=== PATIENT | female | born 2005 | race Caucasian/White ===

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

== ENCOUNTER 2023-11-18 15:16 | Emergency (ER) | payer SELFPAY ==
[2023-11-18 15:29] VITALS: BP 105/71; PULSE 82; RESP 17; TEMP 36.8; O2SAT 99; BMI 23.1
--- NOTE | 2023-11-18 16:05 | CTR_ITS ---
PROCEDURE INFORMATION: Exam: CT Neck With Contrast Exam date and time: 11/18/2023 4:26 PM Age: 17 years old Clinical indication: Mass, lump, or swelling in neck; Left; Neck pain; Additional info: Painful neck mass TECHNIQUE: Imaging protocol: Computed tomography of the neck with contrast. Radiation optimization: All CT scans at this facility use at least one of these dose optimization techniques: automated exposure control; mA and/or kV adjustment per patient size (includes targeted exams where dose is matched to clinical indication); or iterative reconstruction. Contrast material: OMNI 350; Contrast volume: 80 ml; Contrast route: INTRAVENOUS (IV); COMPARISON: CR XR chest 2V* [id number] 09/27/2022 11:38 AM RADIATION DOSE METRICS: Total DLP (mGy-cm): 209.1 FINDINGS: Salivary glands: See Lymph nodes finding. Pharynx: Unremarkable. No significant tonsillar enlargement. Prevertebral and retropharyngeal spaces: Unremarkable. Larynx: Unremarkable. Epiglottis is normal. Thyroid: Normal. No enlarged or calcified nodules. Trachea: Visualized trachea is unremarkable. Lungs: Unremarkable as visualized. Lymph nodes: Peripherally enhancing collection with complex fluid or necrosis centrally cannot be differentiated from adjacent level 2 and 3 lymph nodes in the left neck soft tissues. This cannot be differentiated from the adjacent anteromedial sternocleidomastoid and inferior aspect of the parotid gland as well and measures 3.6 x 2.3 cm in the craniocaudad/transverse dimensions. There is level 2 through 4 lymphadenopathy in the left neck soft tissues. Bones/joints: Unremarkable. No acute fracture. Soft tissues: See Lymph nodes finding. CT/CT neck w con* [id number] IMPRESSION: 1. Peripherally enhancing collection with complex fluid or necrosis centrally cannot be differentiated from adjacent level 2 and 3 lymph nodes in the left neck soft tissues. This collection also cannot be differentiated from the adjacent anteromedial sternocleidomastoid and inferior aspect of the parotid gland. Differential includes abscess formation and or necrotic lymph nodes. 2. Level 2 through 4 lymphadenopathy in the left neck soft tissues.
--- NOTE | 2023-11-18 16:11 | ED_ITS ---
Documented by User: AWA Oh 11/18/23 19:11 HPI - General Adult 2 General: Chief complaint: General Medical Stated complaint: left side kneck pain Time Seen by Provider: 11/18/23 15:22 Source: patient Mode of arrival: ambulatory Limitations: no limitations History of Present Illness: Patient is a 17-year-old female presenting to the emergency department complaining of painful neck mass to left neck for the past 10 days. Patient states she has a history of swollen lymph nodes, though this feels different and not usually they are painful. She has been taking ibuprofen for pain relief and using ice, but states this is not been helping. She also notes that it is painful whenever she swallows. She denies any fever, recent cat bite/scratch, nausea or vomiting, or any pertinent past medical history. She states that this morning it was so bad to where she could not move her neck. MD complaint: Painful left neck mass Onset (ago): day(s) (10) Location: neck Severity: severe Relieving factors: none Exacerbating factors: other (Swallowing/movement of neck) Associated symptoms: Deny chest pain, dyspnea, headache(s), nausea, rash, palpitations or vomiting Treatments prior to arrival: NSAID and cold therapy Review of Systems 2 General: Reports: 10 or more systems reviewed and unremarkable except in HPI and below Const: Denies: fever(s), chills or fatigue Eyes: Denies: change in vision ENMT: Denies: throat pain, ear or mastoid pain or nasal discharge Card: Denies: chest pain, palpitations, swelling of feet/ankles or lightheadedness Resp: Denies: dyspnea, productive cough or wheezing GI: Denies: abdominal pain, nausea, vomiting, diarrhea or constipation : Denies: flank pain, difficulty voiding, dysuria or urinary frequency Musc: Reports: neck pain (Neck mass); Denies: back pain or joint pain Skin/Breast: Denies: rash Neuro: Denies: headache(s), numbness in extremities or weakness in extremities PFSH ED 2 PFSH: Medical History Psychiatric care Family History Grandmother Hypertension maternal Denies family history of Colon cancer Ovarian cancer Diabetes Heart disease Hyperlipidemia Breast cancer Uterine cancer Thyroid disease Stroke Social History Smoking and tobacco/nicotine status: current every day tobacco/nicotine user cigarettes Packs smoked per day: 0.12 Years cigarettes smoked: 3 and e- cigarettes E-Cigarette Details: vaporizer device and with nicotine E-cig/vape details: Smoked these the last 2 yrs. 1/2 cartridge/ day. Quit status (tobacco/nicotine): has tried quititng Number of times tried to quit tobacco: 3 Second hand smoke exposure: No Alcohol intake: current Alcohol intake frequency: holidays/special occasions only Alcohol type: beer Substance/Drug Use: never Physical Exam 2 Const: COMMON NORMALS: no acute distress and healthy appearing GENERAL APPEARANCE: cooperative, comfortable and well developed HENMT: COMMON NORMALS: normocephalic, atraumatic, hearing grossly normal bilaterally, external ears normal, EAC's normal, TM's normal bilaterally, Normal external nose present and Normal nasal mucous membranes and turbinates present HEAD & SCALP: normal to inspection, normocephalic and atraumatic FACE & SINUS: normal facial exam and sinuses nontender NOSE: Normal external nose present, Normal nares present, No nasal polyps present and Normal nasal mucous membranes and turbinates present EXTERNAL EAR: Yes external ears normal E XTERNAL AUDITORY CANAL: EAC's normal TYMPANIC MEMBRANE: TM's normal bilaterally MOUTH: Normal oral and palatal mucosa present THROAT: p osterior oropharynx normal and tonsils normal Eye: COMMON NORMALS: EOMs intact bilaterally, conjunctivae normal and normal visual carrion by confrontation GENERAL EYE: appearance normal, both eyes and all related structures CONJUNCTIVA: Yes conjunctivae normal Neck/C-Spine: OTHER: There is a large/nonmobile and tender neck mass just anterior to the sternocleidomastoid on the left side. There is limitation of rotation at the neck due to pain. No overlying skin changes. Chest: COMMONS NORMALS: normal inspection of the chest Resp: COMMON NORMALS: normal respiratory effort and clear to auscultation bilaterally EFFORT & INSPECTION: Yes able to speak in complete sentences A USCULTATION: clear to auscultation bilaterally Cardio: COMMON NORMALS: regular rate, regular rhythm, S1 normal heart sound present and S2 normal heart sound present RATE: regular rate RHYTHM: r egular rhythm HEART SOUNDS: S1 normal heart sound present, S2 normal heart sound present, no gallops, no murmurs and no rubs GI: COMMON NORMALS: Soft to palpation and No hepatosplenomegaly present I NSPECTION: Yes normal to inspection PALPATION: Yes Soft to palpation and Yes No hepatosplenomegaly present Extremity: COMMON NORMALS: normal to inspection, full ROM and capillary refill normal Skin: COMMON NORMALS: no rashes or lesions noted NARRATIVE SKIN EXAM: Specifically no evidence of recent cat scratch GENERAL SKIN EXAM: no rashes or lesions noted Course 2 Vital Signs: Vital signs: Vital Signs Temperature 98.2 F 11/18/23 19:28 Pulse Rate 71 11/18/23 19:28 Respiratory Rate 16 11/18/23 19:28 Blood Pressure 96/74 11/18/23 19:28 Pulse Oximetry 99 11/18/23 19:28 Oxygen Delivery Me thod Room Air 11/18/23 15:29 MDM - General Adult Medical Decision Making Patient presented with tender neck mass to left neck that she noticed 10 days ago. History of lymphadenopathy, states this has persisted longer and is more painful. After further history taking [place], and does own a household cat. Patient was afebrile and rest of her vitals unremarkable. Basic blood work unremarkable aside from a moderately elevated CRP. CT of the neck could not differentiate between abscess or necrotic lymph nodes, though due to her history of lymphadenopathy that is more favorable of the latter. She will be referred to ENT and we will cover for multiple organisms with Zithromax and doxycycline. Patient does not endorse any respiratory compromise or tongue or throat swelling, however she is instructed to return immediately if she has any symptoms consistent with this. She is comfortable with discharge home at this time. First doses of antibiotics are given here in the emergency department. She is instructed to continue Tylenol and ibuprofen for any pain. Care of this patient is discussed with supervising ED physician, Dr. Salazar, who agrees with disposition. Lab Data I reviewed the patient's lab results. 11/18/23 16:15 11/18/23 16:[address] 11/18/23 16:05 IMPRESSION: 1. Peripherally enhancing collection with complex fluid or necrosis centrally cannot be differentiated from adjacent level 2 and 3 lymph nodes in the left neck soft tissues. This collection also cannot be differentiated from the adjacent anteromedial sternocleidomastoid and inferior aspect of the parotid gland. Differential includes abscess formation and or necrotic lymph nodes. 2. Level 2 through 4 lymphadenopathy in the left neck soft tissues. Laboratory Results WBC 10.75 10^3/uL (4.5-13.0) 11/18/23 16:15 RBC 3.90 10^6/uL (3.85-5.65) 11/18/23 16:15 Hgb 12.30 g/dL (12.4-14.8) L 11/18/23 16:15 Hct 36.0 % (36-47) 11/18/23 16:15 MCV 92.3 fl (85-98) 11/18/23 16:15 MCH 31.5 pg (27-33) 11/18/23 16:15 MCHC 34.2 g/dL (30-55) 11/18/23 16:15 RDW 12.4 % (12.1-15.1) 11/18/23 16:15 Plt Count 261 10^3/cmm (157-399) 11/18/23 16:15 MPV 10.2 fL (7.4-10.4) 11/18/23 16:15 Neut % (Auto) 72.9 % 11/18/23 16:15 Lymph % (Auto) 18.3 % 11/18/23 16:15 [place] % (Auto) 6.3 % 11/18/23 16:15 Eos % (Auto) 1.9 % 11/18/23 16:15 Baso % (Auto) 0.4 % 11/18/23 16:15 Neut # (Auto) 7.84 10^3/uL (1.8-8.0) 11/18/23 16:15 Lymph # (Auto) 2.0 10^3/uL (1.5-6.5) 11/18/23 16:15 [place] # (Auto) 0.7 10^3/uL (0.2-0.9) 11/18/23 16:15 Eos # (Auto) 0.2 10^3/uL (0.0-0.8) 11/18/23 16:15 Baso # (Auto) 0.0 10^3/uL (0.0-0.1) 11/18/23 16:15 Nucleated RBC % (auto) 0 % 11/18/23 16:15 Nucleated RBCs # 0.0 /100WBC 11/18/23 16:15 ESR 15 mm/hr (0-15) 11/18/23 16:15 Sodium 142 mmol/L (136-145) 11/18/23 16:15 Potassium 4.0 mmol/L (3.5-5.1) 11/18/23 16:15 Chloride 109 mmol/L (98-107) H 11/18/23 16:15 Carbon Dioxide 23 mmol/L (22-29) 11/18/23 16:15 Anion Gap 14.0 (5-19) 11/18/23 16:15 BUN 10 mg/dL (6-20) 11/18/23 16:15 Creatinine 0.8 mg/dL (0.5-0.9) 11/18/23 16:15 GFR Calculation 92.4 mL/min (90-130) 11/18/23 16:15 Glucose 102 mg/dL (65-115) 11/18/23 16:15 Calculated Osmolality 293 mOsm/kg (285-295) 11/18/23 16:15 Calcium 8.7 mg/dL (8.5-10.5) 11/18/23 16:15 Total Bilirubin 0.5 mg/dL (0.15-1.2) 11/18/23 16:15 AST 22 U/L (0-32) 11/18/23 16:15 ALT 18 U/L (0-33) 11/18/23 16:15 Alkaline Phosphatase 68 U/L (35-105) 11/18/23 16:15 C-Reactive Protein 47.0 mg/L (0.0-4.9) H 11/18/23 16:15 Total Protein 6.5 g/dL (6.6-8.7) L 11/18/23 16:15 Albumin 3.8 g/dL (3.5-5.2) 11/18/23 16:15 Globulin 2.7 g/dL (1.3-4.6) 11/18/23 16:15 All radiology interpretation(s) finalized by discharge Discharge Plan Discharge Patient Disposition: Home Clinical Impression: Necrotizing inflammation of lymph node Condition: Stable Prescriptions: New doxycycline hyclate 100 mg tablet 100 mg PO BID 10 Days Qty: 20 0RF azithromycin 500 mg tablet 500 mg PO DAILY 7 Days Qty: 5 0RF No Action fluoxetine 20 mg capsule 60 mg PO DAILY Qty: 90 2RF Discharge Orders: Discharge ED (Routine); Ordered 11/18/23 Ordered By: Chucky Monk Referrals: Gio Amador MD [Primary Care Provider] - Discharge Diet: Usual diet Discharge Activity: Increase activity as tolerated Patient Instructions: Lymphadenopathy (ED) Activity Restrictions/Additional Instructions: Take antibiotics as prescribed. Follow-up with ENT as discussed. If you start to have breathing difficulties or any new concerns, please return to the emergency department for reevaluation. Continue taking Tylenol and ibuprofen for any pain. Coding Level of Care Code ED Business Services Analyst for [employer] Documented by User: Chris Salazar, 11/19/23 03:00 HPI - General Adult 2 General: Chief complaint: General Medical Stated complaint: left side kneck pain Time Seen by Provider: 11/18/23 15:22 [facility] ED 2 PFSH: Medical History Psychiatric care Family History Grandmother Hypertension maternal Denies family history of Colon cancer Ovarian cancer Diabetes Heart disease Hyperlipidemia Breast cancer Uterine cancer Thyroid disease Stroke Social History Smoking and tobacco/nicotine status: current every day tobacco/nicotine user cigarettes Packs smoked per day: 0.12 Years cigarettes smoked: 3 and e- cigarettes E-Cigarette Details: vaporizer device and with nicotine E-cig/vape details: Smoked these the last 2 yrs. 1/2 cartridge/ day. Quit status (tobacco/nicotine): has tried quititng Number of times tried to quit tobacco: 3 Second hand smoke exposure: No Alcohol intake: current Alcohol intake frequency: holidays/special occasions only Alcohol type: beer Substance/Drug Use: never Course 2 Vital Signs: Vital signs: Vital Signs Temperature 98.2 F 11/18/23 19:28 Pulse Rate 71 11/18/23 19:28 Respiratory Rate 16 11/18/23 19:28 Blood Pressure 96/74 11/18/23 19:28 Pulse Oximetry 99 11/18/23 19:28 Oxygen Delivery Me thod Room Air 11/18/23 15:29 MDM - General Adult Medical Decision Making Patient presented with tender neck mass to left neck that she noticed 10 days ago. History of lymphadenopathy, states this has persisted longer and is more painful. After further history taking [place], and does own a household cat. Patient was afebrile and rest of her vitals unremarkable. Basic blood work unremarkable aside from a moderately elevated CRP. CT of the neck could not differentiate between abscess or necrotic lymph nodes, though due to her history of lymphadenopathy that is more favorable of the latter. She will be referred to ENT and we will cover for multiple organisms with Zithromax and doxycycline. Patient does not endorse any respiratory compromise or tongue or throat swelling, however she is instructed to return immediately if she has any symptoms consistent with this. She is comfortable with discharge home at this time. First doses of antibiotics are given here in the emergency department. She is instructed to continue Tylenol and ibuprofen for any pain. Care of this patient is discussed with supervising ED physician, Dr. Salazar, who agrees with disposition. This patient was originally seen by Mr. Aleshia PA-C.? I agree with his history, evaluation, and treatment. Lab Data 11/18/23 16:15 11/18/23 16:[address] 11/18/23 16:05 IMPRESSION: 1. Peripherally enhancing collection with complex fluid or necrosis centrally cannot be differentiated from adjacent level 2 and 3 lymph nodes in the left neck soft tissues. This collection also cannot be differentiated from the adjacent anteromedial sternocleidomastoid and inferior aspect of the parotid gland. Differential includes abscess formation and or necrotic lymph nodes. 2. Level 2 through 4 lymphadenopathy in the left neck soft tissues. Laboratory Results WBC 10.75 10^3/uL (4.5-13.0) 11/18/23 16:15 RBC 3.90 10^6/uL (3.85-5.65) 11/18/23 16:15 Hgb 12.30 g/dL (12.4-14.8) L 11/18/23 16:15 Hct 36.0 % (36-47) 11/18/23 16:15 MCV 92.3 fl (85-98) 11/18/23 16:15 MCH 31.5 pg (27-33) 11/18/23 16:15 MCHC 34.2 g/dL (30-55) 11/18/23 16:15 RDW 12.4 % (12.1-15.1) 11/18/23 16:15 Plt Count 261 10^3/cmm (157-399) 11/18/23 16:15 MPV 10.2 fL (7.4-10.4) 11/18/23 16:15 Neut % (Auto) 72.9 % 11/18/23 16:15 Lymph % (Auto) 18.3 % 11/18/23 16:15 [place] % (Auto) 6.3 % 11/18/23 16:15 Eos % (Auto) 1.9 % 11/18/23 16:15 Baso % (Auto) 0.4 % 11/18/23 16:15 Neut # (Auto) 7.84 10^3/uL (1.8-8.0) 11/18/23 16:15 Lymph # (Auto) 2.0 10^3/uL (1.5-6.5) 11/18/23 16:15 [place] # (Auto) 0.7 10^3/uL (0.2-0.9) 11/18/23 16:15 Eos # (Auto) 0.2 10^3/uL (0.0-0.8) 11/18/23 16:15 Baso # (Auto) 0.0 10^3/uL (0.0-0.1) 11/18/23 16:15 Nucleated RBC % (auto) 0 % 11/18/23 16:15 Nucleated RBCs # 0.0 /100WBC 11/18/23 16:15 ESR 15 mm/hr (0-15) 11/18/23 16:15 Sodium 142 mmol/L (136-145) 11/18/23 16:15 Potassium 4.0 mmol/L (3.5-5.1) 11/18/23 16:15 Chloride 109 mmol/L (98-107) H 11/18/23 16:15 Carbon Dioxide 23 mmol/L (22-29) 11/18/23 16:15 Anion Gap 14.0 (5-19) 11/18/23 16:15 BUN 10 mg/dL (6-20) 11/18/23 16:15 Creatinine 0.8 mg/dL (0.5-0.9) 11/18/23 16:15 GFR Calculation 92.4 mL/min (90-130) 11/18/23 16:15 Glucose 102 mg/dL (65-115) 11/18/23 16:15 Calculated Osmolality 293 mOsm/kg (285-295) 11/18/23 16:15 Calcium 8.7 mg/dL (8.5-10.5) 11/18/23 16:15 Total Bilirubin 0.5 mg/dL (0.15-1.2) 11/18/23 16:15 AST 22 U/L (0-32) 11/18/23 16:15 ALT 18 U/L (0-33) 11/18/23 16:15 Alkaline Phosphatase 68 U/L (35-105) 11/18/23 16:15 C-Reactive Protein 47.0 mg/L (0.0-4.9) H 11/18/23 16:15 Total Protein 6.5 g/dL (6.6-8.7) L 11/18/23 16:15 Albumin 3.8 g/dL (3.5-5.2) 11/18/23 16:15 Globulin 2.7 g/dL (1.3-4.6) 11/18/23 16:15 Discharge Plan Discharge Patient Disposition: Home Clinical Impression: Necrotizing inflammation of lymph node Condition: Stable Prescriptions: New doxycycline hyclate 100 mg tablet 100 mg PO BID 10 Days Qty: 20 0RF azithromycin 500 mg tablet 500 mg PO DAILY 7 Days Qty: 5 0RF No Action fluoxetine 20 mg capsule 60 mg PO DAILY Qty: 90 2RF Discharge Orders: Discharge ED (Routine); Ordered 11/18/23 Ordered By: Chucky Monk Referrals: Gio Amador MD [Primary Care Provider] - Discharge Diet: Usual diet Discharge Activity: Increase activity as tolerated Patient Instructions: Lymphadenopathy (ED) Activity Restrictions/Additional Instructions: Take antibiotics as prescribed. Follow-up with ENT as discussed. If you start to have breathing difficulties or any new concerns, please return to the emergency department for reevaluation. Continue taking Tylenol and ibuprofen for any pain. Coding Level of Care Code ED Business Services Analyst for [facility]wood
[2023-11-18 16:20] LABS: Basophils % 0.4 %; Eosinophils # 0.2 10^3/uL (0.0-0.8); Eosinophils % 1.9 %; Lymphocytes % 18.3 %; Mean Corpuscular HGB Conc 34.2 g/dL (30-55); Mean Corpuscular Hemoglobin 31.5 pg (27-33); Mean Corpuscular Volume 92.3 fl (85-98); Mean Platelet Volume 10.2 fL (7.4-10.4); Monocytes # 0.7 10^3/uL (0.2-0.9); Monocytes % 6.3 %; Neutrophils # 7.84 10^3/uL (1.8-8.0); Neutrophils % 72.9 %; Nucleated Red Blood Cells % 0 %; Platelet Count 261 10^3/cmm (157-399); Red Cell Distribution Width 12.4 % (12.1-15.1); White Blood Count 10.75 10^3/uL (4.5-13.0)
[2023-11-18] MEDS: iohexol 350 mg/mL 500 mL Btl (per mL) IV (16:27)
[2023-11-18 16:42] LABS: Alanine Aminotransferase 18 U/L (0-33); Albumin Level 3.8 g/dL (3.5-5.2); Alkaline Phosphatase 68 U/L (35-105); Aspartate Amino Transferase 22 U/L (0-32); Blood Urea Nitrogen 10 mg/dL (6-20); Calcium 8.7 mg/dL (8.5-10.5); Carbon Dioxide 23 mmol/L (22-29); Chloride 109 mmol/L (98-107); Creatinine Clr Calc Pharmacy 102.3393; Globulin 2.7 g/dL (1.3-4.6); Glomerular Filtration Rate 92.4 mL/min (90-130); Glucose 102 mg/dL (65-115); Osmolality Calculated 293 mOsm/kg (285-295); Sodium 142 mmol/L (136-145); Total Bilirubin 0.5 mg/dL (0.15-1.2); Total Protein 6.5 g/dL (6.6-8.7)
[2023-11-18 16:51] LABS: Erythrocyte Sedimentation Rate 15 mm/hr (0-15)
[2023-11-18 17:33] VITALS: BP 107/61; PULSE 74; RESP 16; O2SAT 97
[2023-11-18 19:28] VITALS: BP 96/74; PULSE 71; RESP 16; TEMP 36.8; O2SAT 99
[2023-11-18] MEDS: azithromycin 250 mg Tablet 500 MG PO (19:29)
[2023-11-18] MEDS: doxycycline 100 mg Tablet PO (19:29)
== END 2023-11-18 19:29 | disposition home or self-care (01) ==
PROVIDERS: Emergency Provider Physician Assistant; PCP Family Medicine
DX: I88.8 Other nonspecific lymphadenitis (principal); F17.210 Nicotine dependence, cigarettes, uncomplicated; F17.290 Nicotine dependence, other tobacco product, uncomplicated
CPT/HCPCS: 70491; 80053; 85025; 85651; 86140; 99285; 99291; Q0144; Q9967